=== PATIENT | female | born 1960 | race Asian ===

== ENCOUNTER → 2018-10-25 13:24 | Outpatient (CLI) | payer OTHER, SELFPAY ==
--- NOTE | 2018-10-25 | DI.ECHO.S_ITS ---
[place] [facility]---------+ [facility] +---------+ : : [address] : : : : [id number] : : : : Phone: [phone]+ Echocardiogram Report + + :Name: ANTONIO THOMAS Study Date: 10/25/2018 Height: 62 in : :[facility] Weight: 145 lb : : Gender: Female BSA: 1.7 m2 : :: 1960 Age: 58 yrs BP: 110/70 mmHg: :Reason For Study: LEFT-SIDED PARESTHESIA OF SKIN : : Performed By: Sabiha Plasencia : :Referring: STAR JAMES : + + Interpretation Summary There was early appearance of large amount of bubbles in the left atrium with Valsalva maneuver, indicating an interatrial shunt, related to a PFO or ASD. The left ventricle is normal in size, wall thickness, and systolic function without any focal wall motion abnormalities. The right ventricle is normal in size and function. The right ventricular systolic pressure is estimated to be at least 25 mmHg based on an estimated right atrial pressure of 3 mm Hg. The right atrium is mildly dilated. No hemodynamically significant valvular abnormalities. No prior echo for comparison. Procedure: A two-dimensional transthoracic echocardiogram with color flow and Doppler was performed. The study quality was technically good. There is no prior echocardiogram noted for this patient. A saline contrast injection was performed to assess for cardiac shunting. The patient was in normal sinus rhythm during the exam. Left Ventricle: The left ventricle is normal in size, wall thickness, and systolic function without any focal wall motion abnormalities. There is no ventricular septal defect visualized. The ejection fraction is estimated to be 60-65%. Diastolic parameters suggest probable normal left ventricular diastolic function and normal filling pressures. Right Ventricle: The right ventricle is normal in size and function. Atria: The left atrial size is normal. The right atrium is mildly dilated. Injection of contrast with valsalva documented an interatrial shunt. The interatrial septum is hypermobile. Mitral Valve: There is a flat closure plane of the the mitral valve leaflets. There is trace mitral regurgitation. Aortic Valve: The aortic valve is normal in structure and function. No aortic regurgitation is present. Tricuspid Valve: The tricuspid valve leaflets are thin and pliable. There is mild tricuspid regurgitation. The right ventricular systolic pressure is estimated to be at least 25 mmHg based on an estimated right atrial pressure of 3 mm Hg. Pulmonic Valve: The pulmonic valve is normal in structure and function. There is a trace or physiologic amount of pulmonic regurgitation. Great Vessels: The aortic root is normal size. The ascending aorta is at the upper limits of normal in size. The aortic arch is normal in size. The pulmonary artery is normal size. The IVC is of normal diameter and collapses greater than 50% with a sniff. This suggests a low right atrial pressure of 3 mm Hg. Pericardium/ Pleura There is no pericardial effusion. MMode/2D Measurements & Calculations LVIDd: 4.3 cm LVOT diam: 1.9 cm LVIDs: 2.7 cm Ao root diam: 3.6 cm FS: 38.6 % Aortic Jxn: 2.7 cm EPSS: 0.32 cm asc Aorta Diam: 3.7 cm IVSd: 0.73 cm Ao Arch Diam (Prox Trans): 2.2 cm LVPWd: 0.62 cm LV ann. diameter/BSA (cm/m^2): 2.6 LV sys. diameter/BSA (cm/m^2): 1.6 LA A2 area: 19.1 cm2 RA long axis: 5.2 cm LA A4 area: 17.6 cm2 RA area: 16.2 cm2 LA length (vol): 5.8 cm RA vol: 43.4 ml LA vol: 49.0 ml RA : 26.0 ml/m2 LA vol index: 29.4 ml/m2 IVC diam: 1.2 cm RVD1 (basal): 3.1 cm RVD2 (mid): 2.4 cm TAPSE: 2.1 cm Doppler Measurements & Calculations Ao V2 max: 149.9 cm/sec LVOT Max Yosvany: 100.0 cm/sec Ao V2 mean: 84.6 cm/sec LV V1 max P.0 mmHg Ao max P.0 mmHg LV V1 VTI: 21.5 cm Ao mean P.4 mmHg GALLO(I,D): 2.1 cm2 Ao V2 VTI: 29.5 cm GALLO(V,D): 2.0 cm2 sev ratio: 0.73 GALLO indexed to BSA (cm^2/m^2): 1.3 MV E max yosvany: 81.6 cm/sec TR max yosvany: 235.9 cm/sec MV A max yosvany: 64.0 cm/sec TR max P.3 mmHg MV E/A: 1.3 PA V2 max: 77.9 cm/sec Med Peak E' Yosvany: 8.9 cm/sec PA V2 mean: 50.2 cm/sec E/E' med: 9.1 PA mean P.2 mmHg Lat Peak E' Yosvany: 9.3 cm/sec PA pr(Accel): 41.6 mmHg E/E' lat: 8.8 E/e' average: 9.0 MV dec time: 0.23 sec MV P1/2t: 66.7 msec MV P1/2t max yosvany: 82.0 cm/sec SV(LVOT): 63.1 ml MVA(P1/2t): 3.3 cm2 Electronically signed by: Oren Jasso M.D. on Reading Physician:10/25/2018 04:49 PM
--- NOTE | 2018-10-25 | DI.MRI.S_ITS ---
PROCEDURE: MR HEAD/BRAIN WO CON INDICATIONS: Posterior left sided headaches TECHNIQUE: Non-contrast axial T1 spin echo, axial T2 fast spin echo, sagittal and axial FLAIR, coronal T2 fast spin echo, axial gradient echo, axial diffusion and ADC through the brain. COMPARISON: None. FINDINGS: Image quality: Excellent. CSF spaces: Ventricles appear symmetric in size and shape. Basal cisterns are patent. No extra-axial fluid collections. Brain: No intracranial bleeds or mass effects. There is cerebral volume loss for age. There are periventricular and deep white matter chronic small vessel ischemic changes. Brainstem appears normal. Diffusion-weighted images show no acute ischemic insults. No chronic ischemic insults. Normal intravascular flow voids are present. Skull and face: Calvarial bone marrow is normal in signal. Orbits are normal. Sinuses: Sinuses and mastoids are clear. IMPRESSION: No evidence of acute ischemia. No acute signal abnormalities. Diffuse small white matter signal changes, probably represent chronic microvascular ischemic disease, versus statistically less likely demyelination or other infectious, inflammatory, neurodegenerative etiology, technically nonspecific. Dictated by: Marv Morales M.D. on 10/25/2018 at 15:50 Approved by: Marv Morales M.D. on 10/25/2018 at 15:52
== END ==
PROVIDERS: PCP Registered Nurse Diabetes Educator; Visit Provider Registered Nurse Diabetes Educator
DX: I07.1 Rheumatic tricuspid insufficiency (principal); R51 Headache; R20.2 Paresthesia of skin
CPT/HCPCS: 70551; 93306

== ENCOUNTER → 2019-12-17 17:22 | Outpatient (CLI) | payer OTHER, SELFPAY ==
--- NOTE | 2019-12-17 17:25 | DI.RAD.S_ITS ---
PROCEDURE: XR FOOT LT MIN 3V INDICATIONS: L heel pain x 1 month, no trauma TECHNIQUE: 3 views of the foot were acquired. COMPARISON: None. FINDINGS: Bones: No fractures or dislocations. No suspicious bony lesions. Soft tissues: No tibiotalar joint effusion. Achilles tendon appears normal. IMPRESSION: Minimal plantar fascia insertion spur posterior calcaneus, source of heel pain is not identified otherwise. Dictated by: Barber Camejo M.D. on 12/18/2019 at 8:11 Approved by: Barber Camejo M.D. on 12/18/2019 at 8:11
== END ==
PROVIDERS: PCP Registered Nurse Diabetes Educator; Referring Provider Registered Nurse Diabetes Educator; Visit Provider Registered Nurse Diabetes Educator
DX: M79.672 Pain in left foot (principal)
CPT/HCPCS: 73630

== ENCOUNTER → 2020-02-28 11:06 | Outpatient (CLI) | payer OTHER, SELFPAY ==
--- NOTE | 2020-02-28 | DI.MG.S_ITS ---
BILATERAL DIGITAL SCREENING MAMMOGRAM 3D/2D WITH CAD: 02/28/2020 CLINICAL: Routine screening. Comparison is made to exams dated: 07/17/2015 mammogram, 01/03/2017 mammogram - [facility], and 05/17/2018 mammogram - [facility]. There are scattered fibroglandular elements in both breasts. Current study was also evaluated with a Computer Aided Detection (CAD) system. There is a new oval equal density mass with a spiculated margin in the left breast at 1 o'clock anterior depth. No other significant masses, calcifications, or other findings are seen in either breast. IMPRESSION: INCOMPLETE: NEEDS ADDITIONAL IMAGING EVALUATION The new oval equal density mass in the left breast is indeterminate. Mediolateral and spot compression views as well as additional views with possible ultrasound are recommended. This exam was interpreted at Station ID: [id number]. NOTE: For mammograms, a report in lay terms will be sent to the patient. Approximately 15% of breast malignancies will not be visualized mammographically. In the management of a palpable breast mass, a negative mammogram must not discourage biopsy of a clinically suspicious lesion. Electronically Signed By: Brady wheeler/beny:02/28/2020 12:37:07 letter sent: Additional Imaging Needed ACR BI-RADS Category 0: Incomplete [id number]
== END ==
PROVIDERS: PCP Registered Nurse Diabetes Educator; Referring Provider Registered Nurse Diabetes Educator; Visit Provider Registered Nurse Diabetes Educator
DX: Z12.31 Encounter for screening mammogram for malignant neoplasm of breast (principal)
CPT/HCPCS: 77063; 77067

== ENCOUNTER → 2020-03-25 14:40 | Outpatient (CLI) | payer OTHER, SELFPAY ==
--- NOTE | 2020-03-25 15:34 | DI.MG.S_ITS ---
Date: 03/25/2020 15:22 At the request of: STAR JAMES Procedure: MM special view LT UNILATERAL LEFT DIGITAL DIAGNOSTIC MAMMOGRAM 3D/2D WITH ADDITIONAL VIEWS: 03/25/2020 CLINICAL: Additional evaluation requested from prior study. Comparison is made to exams dated: 02/28/2020 mammogram - [facility], 05/17/2018 mammogram - [facility], and 01/03/2017 mammogram - [facility]. There are scattered fibroglandular elements in left breast. There is a stable 5 mm low density focal asymmetry in the left breast at 2 o'clock middle depth. There also is an 8 mm irregular equal density mass with a spiculated margin in the left breast at 2 o'clock middle depth. This is increased in size. Additionally, there is a stable benign 2 cm focal asymmetry with coarse calcifications in the left breast at 12 o'clock middle depth. No other significant masses or calcifications are seen in the breast. IMPRESSION: INCOMPLETE: NEEDS ADDITIONAL IMAGING EVALUATION The stable 5 mm low density focal asymmetry in the left breast at 2 o'clock middle depth is indeterminate. The 8 mm irregular equal density mass in the left breast at 2 o'clock middle depth is indeterminate. An ultrasound is recommended. This exam was interpreted at Station ID: [id number]. NOTE: For mammograms, a report in lay terms will be sent to the patient. Approximately 15% of breast malignancies will not be visualized mammographically. In the management of a palpable breast mass, a negative mammogram must not discourage biopsy of a clinically suspicious lesion. SUMMARY: Targeted ultrasound is recommended for further evaluation and will be scheduled immediately following this exam. Electronically Signed By: Rolly holt/beny:03/26/2020 11:22:37 ACR BI-RADS Category 0: Incomplete [id number]
--- NOTE | 2020-03-25 15:47 | DI.US.S_ITS ---
Date: 03/25/2020 15:42 At the request of: STAR ERIKA Procedure: US breast LT limited LIMITED ULTRASOUND OF LEFT BREAST AND AXILLA: 03/25/2020 CLINICAL: Patient returns today to evaluate a density in the left breast. Comparison is made to exams dated: 03/25/2020 mammogram, 02/28/2020 mammogram - [facility], 05/17/2018 mammogram - [facility], and 01/03/2017 mammogram - [facility]. Color flow ultrasound of the left breast 3 o'clock, and axilla regions was performed. Jade scale images of the real-time examination were reviewed. There is a 0.9 cm x 0.9 cm x 0.5 cm irregular mass with an angular margin in the left breast at 2 o'clock anterior depth 2 cm from the nipple. This irregular mass is hypoechoic with an echogenic boundary. This correlates with mammography findings. Color flow imaging demonstrates that there is no vascularity present. This lesion is labeled as #3 on ultrasound images and likely corresponds to the spiculated mass seen on mammography. There also is a 0.9 cm x 0.8 cm x 0.5 cm irregular cyst in the left breast at 1 o'clock anterior depth 2 cm from the nipple. This irregular cyst is anechoic and hypoechoic. Color flow imaging demonstrates that there is an adjacent vascularity. This is labeled as lesion #2 on ultrasound images. This lesion likely corresponds to the low-density lesion on mammography. Additionally, there is a stable benign 1 cm x 1.7 cm x 0.7 cm oval mass with a circumscribed margin in the left breast at 12 o'clock middle depth 3 cm from the nipple. This oval mass is hypoechoic. This correlates with mammography findings. There are calcifications within the mass. No significant abnormalities were seen sonographically in the left axilla. IMPRESSION: SUSPICIOUS OF MALIGNANCY The 0.9 cm x 0.9 cm x 0.5 cm irregular mass in the left breast at 2 o'clock anterior depth is at a high suspicion for malignancy. An ultrasound guided biopsy is recommended. The findings and recommendations were discussed with the patient by the onsite radiologist, Dr. Tejada, at the time of the exam. The 0.9 cm x 0.8 cm x 0.5 cm irregular cyst in the left breast at 1 o'clock anterior depth most likely is a complicated cyst and is probably benign. Follow-up mammogram and ultrasound in 6 months is recommended. The stable 1 cm x 1.7 cm x 0.7 cm oval mass in the left breast at 12 o'clock middle depth is benign. This exam was interpreted at Station ID: [id number]. Electronically Signed By: Rolly Santana M.D. ar/:03/26/2020 11:39:01 letter sent: Biopsy Required Ultrasound BI-RADS: 4c High suspicion of malignancy
== END ==
PROVIDERS: PCP Registered Nurse Diabetes Educator; Referring Provider Registered Nurse Diabetes Educator; Visit Provider Registered Nurse Diabetes Educator
DX: R92.8 Other abnormal and inconclusive findings on diagnostic imaging of breast (principal); N63.21 Unspecified lump in the left breast, upper outer quadrant; N63.25 Unspecified lump in the left breast, overlapping quadrants; N60.02 Solitary cyst of left breast
CPT/HCPCS: 76642; 77065; G0279

== ENCOUNTER → 2020-03-30 14:26 | Outpatient (CLI) | payer OTHER, SELFPAY ==
--- NOTE | 2020-03-30 14:29 | DI.CT.S_ITS ---
PROCEDURE: CT ANGIO HEAD INDICATIONS: reeval 2 mm outpouching along L GERALDINE on 10/01/2018 [facility]A [facility] TECHNIQUE: Precontrast 4.5 mm thick angled axial sections acquired from the foramen magnum to the vertex. After the administration of intravenous contrast, 1 mm thick sections acquired through the Schroeder of [place]. Postcontrast 4.5 mm thick sections then re-acquired from the foramen magnum to the vertex. 10 mm thick ilazoid-nywifzsij-vncilsqzsn (MIP) reformats were acquired of the central intracranial vasculature. For radiation dose reduction, the following was used: automated exposure control, adjustment of mA and/or kV according to patient size. COMPARISON: [facility], RG, CT ANGIO HEAD, 10/01/2018, 12:10. FINDINGS: Image quality: Excellent. Anterior circulation: Intracranial internal carotid arteries are normal in size and flow. As before, there is a 2 mm saccular aneurysm protruding laterally from the proximal aspect of the left anterior cerebral artery. The flow within the paired anterior cerebral arteries is otherwise normal and symmetric. The flow within the middle cerebral arteries is normal and symmetric. The anterior communicating artery is seen. Posterior circulation: Visualized portions of the vertebral arteries demonstrate normal caliber, and join to form a normal appearing basilar artery. Flow within the posterior cerebral arteries is normal and symmetric. No aneurysms are seen. CSF spaces: Ventricles are normal in size and shape. Basal cisterns are patent. No extra-axial fluid collections. Brain: No midline shift. No intracranial bleeds or masses. Jade-white matter interface appears intact. Skull and face: Calvarium and facial bones appear intact, without suspicious lesions. Sinuses: Visualized sinuses and mastoids are clear. IMPRESSION: 1. 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 2. Otherwise negative CT angiography of the head. Dictated by: Coni Zamora M.D. on 03/31/2020 at 8:29 Approved by: Coni Zamora M.D. on 03/31/2020 at 8:32
== END ==
PROVIDERS: PCP Registered Nurse Diabetes Educator; Referring Provider Registered Nurse Diabetes Educator; Visit Provider Registered Nurse Diabetes Educator
DX: I67.1 Cerebral aneurysm, nonruptured (principal)
CPT/HCPCS: 70496; Q9967

== ENCOUNTER → 2020-04-03 09:23 | Outpatient (CLI) | payer OTHER, SELFPAY ==
--- NOTE | 2020-04-03 | PATH_ITS ---
[facility] Accession Number: [id number] . 01 Material submitted: . breast - LEFT BREAST, 2 O'CLOCK 2CM FROM THE NIPPLE . 01 Diagnosis: A. Left Breast Mass, 2 O'clock, 2 cm From The Nipple, Biopsy: Fibroadenoma, with associated sclerosing adenosis, usual ductal hyperplasia, focal columnar cell change/hyperplasia, and focal apocrine metaplasia. Negative for atypia, carcinoma in situ, and malignancy. MRV 04/08/2020 0504 Local . 01 Comment: Clinical and radiographic correlation is necessary. Deeper levels examined. . 01 Electronically signed: . Trisha Cook MD, Pathologist NPI- [id number] . 01 Gross description: . Received in formalin, labeled LT BRST, are multiple fragments of bates adipose tissue and clotted hemorrhagic material ranging in size from 1.2 x 0.3 x 0.3 cm to 0.3 x 0.2 x 0.2 cm. All tissue and material are entirely submitted in cassette A1. Collection date and time are listed as 04/03/20 at 10:43 a.m. for a total fixation time after processing of approximately 53 hours. ([id number]) /FRR 04/04/2020 1647 Local . 01 Pathologist provided ICD-10: D24.2 . 01 CPT . 827377 Performed at: 01 [facility] [address] [place] [address], [place], [place] [id number] MD Brady Bear MD Phone: [phone]
--- NOTE | 2020-04-03 | DI.MG.S_ITS ---
UNILATERAL LEFT DIGITAL DIAGNOSTIC MAMMOGRAM POST-PROCEDURE IMAGING FOR MARKER PLACEMENT: 04/03/2020 CLINICAL: Left post clip. Comparison is made to exams dated: 03/25/2020 ultrasound, 03/25/2020 mammogram, and 02/28/2020 mammogram - [facility]. There are scattered fibroglandular elements in left breast. There is a marker clip in the appropriate position in the left breast at 2 o'clock middle depth. This marker clip placement is at the biopsy site. IMPRESSION: POST PROCEDURE MAMMOGRAM FOR MARKER PLACEMENT There was a successful marker clip placement in the left breast middle depth. Future imaging is recommended as follows: 09/22/2020 left mammogram and an ultrasound. This exam was interpreted at Station ID: [id number]. NOTE: For mammograms, a report in lay terms will be sent to the patient. Approximately 15% of breast malignancies will not be visualized mammographically. In the management of a palpable breast mass, a negative mammogram must not discourage biopsy of a clinically suspicious lesion. Electronically Signed By: Lidia means/beny:04/03/2020 10:58:19 ACR BI-RADS Category Post-procedure mammogram for marker placement
--- NOTE | 2020-04-03 09:24 | DI.US.S_ITS ---
PROCEDURE: US BX BREAST PERC W VAC DEVICE COMPARISON: None. INDICATIONS: LEFT BREAST MASS FINDINGS: IMPRESSION: Dictated by: Lidia Tejada MD, PhD on 04/03/2020 at 11:02 Approved by: Lidia Tejada MD, PhD on 04/03/2020 at 11:02
--- NOTE | 2020-04-03 09:51 | DI.US.S_ITS ---
Date: 04/03/2020 10:44 At the request of: STAR JAMES Procedure: US bx breast perc w vac device ULTRASOUND GUIDED BIOPSY LEFT BREAST USING VACUUM DEVICE WITH MARKING DEVICE INSERTED AND POST ULTRASOUND IMAGIN04/03/2020 CLINICAL: Left breast mass. PATIENT CONSENT: Risks (minor bleeding, infection, vasovagal reaction and repeat procedure), benefits and alternatives were explained to the patient and written informed consent was obtained. Correlation is made to exams dated: 03/25/2020 ultrasound, 03/25/2020 mammogram, 02/28/2020 mammogram - [facility], 05/17/2018 mammogram - [facility], 01/03/2017 mammogram, and 07/17/2015 mammogram - [facility]. An ultrasound guided biopsy using real-time ultrasound was performed for the 0.9 cm oval mass located in the left breast at 2 o'clock middle depth 2 cm from the nipple. This was described on the previous ultrasound report. The skin was prepped in the usual manner. Local anesthetic was administered to the access site. A skin placido was made in the breast. A 13 gauge biopsy needle was placed adjacent to the abnormality under ultrasound guidance. Once the needle was documented to be in the correct location, three specimens were obtained using the Mammotome biopsy system. A Vision clip was inserted into the biopsy cavity. Post procedure ultrasound imaging demonstrates the location device at the targeted area. The specimens were sent to the laboratory for pathological analysis. IMPRESSION: ULTRASOUND GUIDED BIOPSY BENIGN Ultrasound guided biopsy of the 0.9 cm mass in the left breast at 2 o'clock middle depth 2 cm from the nipple was successful. Pathology indicates benign fibroadenoma (FA). Pathology results are concordant with imaging findings. A follow-up mammogram and an ultrasound in 6 months is recommended to demonstrate stability of this mass and the adjacent likely complicated cyst at 1:00 2 cm from the nipple as described in the prior report. This exam was interpreted at Station ID: [id number]. Lidia Mast M.D. [facility]/:04/09/2020 08:08:54
== END ==
PROVIDERS: PCP Registered Nurse Diabetes Educator; Referring Provider Registered Nurse Diabetes Educator; Visit Provider Registered Nurse Diabetes Educator
DX: D24.2 Benign neoplasm of left breast (principal); N60.22 Fibroadenosis of left breast; N60.82 Other benign mammary dysplasias of left breast
CPT/HCPCS: 19083; 77065

== ENCOUNTER → 2020-05-26 09:58 | Outpatient (CLI) | payer OTHER, SELFPAY ==
[2020-05-26 12:11] LABS: COVID19 -Nasal RAPID Negative (Negative)
== END ==
PROVIDERS: PCP Registered Nurse Diabetes Educator; Visit Provider Specialist
DX: Z20.822 Contact with and (suspected) exposure to COVID-19 (principal)
CPT/HCPCS: 87635; C9803

== ENCOUNTER 2020-05-27 06:44 | Day surgery (SDC) | payer OTHER, SELFPAY ==
[2020-05-27] VITALS (10 sets, daily range): BP systolic 113–151; BP diastolic 68–86; PULSE 61–78; RESP 11–16; TEMP 36.3–36.8; O2SAT 97–100; BMI 26.5
--- NOTE | 2020-05-27 | DI.MG.S_ITS ---
SPECIMEN: 05/27/2020 CLINICAL: Left breast specimen. Correlation is made to exams dated: 04/03/2020 mammogram, 03/25/2020 mammogram, and 02/28/2020 mammogram - [facility]. Specimen radiograph shows the mass, localization Vision marker, and distal localization wire centrally positioned. IMPRESSION: SPECIMEN Expected specimen appearance from the OR. Future imaging is recommended as follows: 09/22/2020 left mammogram and an ultrasound. This exam was interpreted at Station ID: [id number]. Barber Camejo M.D. sdh/:05/27/2020 12:02:45
--- NOTE | 2020-05-27 | DI.MG.S_ITS ---
UNILATERAL LEFT DIGITAL DIAGNOSTIC MAMMOGRAM POST-NEEDLE BIOPSY: 05/27/2020 CLINICAL: Left breast mass. Comparison is made to exams dated: 04/03/2020 mammogram, 03/25/2020 mammogram, and 02/28/2020 mammogram - [facility]. There are scattered fibroglandular elements in left breast. The wire localization results in the loc wire tip at the margin of the biopsy marker. IMPRESSION: POST PROCEDURE MAMMOGRAM FOR MARKER PLACEMENT Expected locqalization wire position adjacent to the prior biopsy marker, for surgical excision. Future imaging is recommended as follows: 09/22/2020 left mammogram and an ultrasound. This exam was interpreted at Station ID: [id number]. NOTE: For mammograms, a report in lay terms will be sent to the patient. Approximately 15% of breast malignancies will not be visualized mammographically. In the management of a palpable breast mass, a negative mammogram must not discourage biopsy of a clinically suspicious lesion. Electronically Signed By: Barber Camejo M.D. sdh/:05/27/2020 12:05:26 ACR BI-RADS Category Post-procedure mammogram for marker placement
--- NOTE | 2020-05-27 | PATH_ITS ---
[facility] Accession Number: [id number] . 01 Material submitted: . breast - LEFT BREAST MASS . 01 Clinical history: . NEEDLE LOCALIZATION / BX . 02 Diagnosis: Left Breast, Mass, Wire Localized Lumpectomy: Invasive ductal carcinoma. Please see cancer summary below. Benign fibroadenoma, 6 mm. Biopsy site changes. Please see comment. . SURGICAL PATHOLOGY CANCER CASE SUMMARY . Procedure: Excision. Specimen laterality: Left. Tumor site: 2 o'clock. Tumor size: Greatest dimension of largest invasive focus: 8 mm, as measured on slide. Histologic type: Invasive carcinoma of no special type (ductal). Histologic grade ([place] histologic score): Glandular differentiation: Score 2. Nuclear pleomorphism: Score 2. Mitotic rate: Score 2. Overall grade: Grade 2. Tumor focality: Single focus of invasive carcinoma. Ductal carcinoma in situ: Present. Negative for extensive intraductal component. Size/extent of DCIS: Estimated size of DCIS is at least 24 mm. Number of blocks with DCIS: 8. Number of blocks examined: 21. Architectural patterns: Cribriform and micropapillary. Nuclear grade: Grade 2 (intermediate). Necrosis: Not identified. Lobular carcinoma in situ: Present (Block A4). . Margins: -Uninvolved by invasive carcinoma. -Distance from closest margin: 2 mm. -DCIS focally abuts one unoriented margin (less than 0.5 mm). Regional lymph nodes: No lymph nodes submitted or found. Treatment effect in the breast: No known presurgical therapy. Lymphovascular invasion: Not identified. Dermal lymphovascular invasion: No skin present. . Pathologic stage classification (AJCC 8th Edition): Primary tumor: pT1b. Regional lymph nodes: pNX. . Additional pathologic findings: Biopsy site changes. Benign fibroadenoma. Adenosis and usual ductal hyperplasia. . Ancillary studies: Estrogen receptor: Positive, greater than 95%. Progesterone receptor: Positive, greater than 95%. HER2 by IHC: Negative (Score 1+). . Microcalcifications: Not identified. [facility] 06/03/2020 1747 Local . 02 Comment: The size of the invasive carcinoma is based on the on-slide measurement of the largest tumor dimension. . As part of routine vice president quality assurance, Dr. Rivas also reviewed selected slides and agrees with the diagnosis of invasive ductal carcinoma. Dr. Domingo discussed preliminary results with Dr. Gordon on 06/03/2020 at 12:39 PM. . 02 Electronically signed: . Татьяна Domingo MD, Pathologist NPI- [id number] . 01 Gross description: . The specimen is received in formalin, labeled left breast mass. Specimen: Left lumpectomy specimen. Weight: 19 grams. Measurement: 6.0 x 4.6 x 2.8 cm (no orientation present). Skin ellipse: Absent. Wire: Present. Margins: The specimen is inked blue (no orientation). Sliced: Into 15 slices. Lesion: Firm bates-white biopsy site within slices 6 and 7 measuring 0.6 x 0.5 x 0.4 cm. Clip: Present, balloon shaped, silver metallic in slice 7. Margins: 0.1 cm from the nearest margin. Other: The remaining cut surfaces are composed of approximately 80% bates-yellow lobulated adipose tissue and 20% bates-white fibrous tissue. The specimen is entirely submitted. A1: slice 1, perpendicularly sectioned. A2-A3: slices 2 and 3. A4-A7: slices 4 and 5, bisected. A8-A9: slice 6, biopsy site, bisected. A10: slice 7, biopsy site and site of biopsy clip. A11: slice 8. A12-A13: slice 9, bisected. A14-A15: slice 10, bisected. A16-A17: slice 11, bisected. A18: slice 12, bisected. A19: slice 13. A20: slice 14. A21: slice 15, perpendicularly sectioned. Formalin fixation time: Approximately 28 hours. (EA:cmc10 [id number]) /MRV 05/28/2020 1131 Local . 02 Microscopic: . CAP BREAST BIOMARKER REPORTING TEMPLATE: . Testing performed on Block Number: A4 E-cadherin: Negative in the cells of interest. . Testing performed on Block Number: A9 Estrogen Receptor (SP1): Strongly positive, greater than 95% of cells. Progesterone Receptor (1E2): Strongly positive, greater than 95% of cells. HER2 by immunohistochemistry (4B5): Negative (Score 1+) . . TECHNICAL NOTE: Cold Ischemia and Fixation Times: Meets requirements in the latest version of the ASCO/CAP guidelines. The scoring criteria for breast biomarkers by immunohistochemistry is based on the current ASCO/CAP guidelines (Davis et al, Arch Pathol Lab Med 2010: 134(6): 907-922 / Hemant Charles al, Arch Pathol Lab Med 2014: 138(2): 241-256). Deparaffinized sections of formalin fixed tissue (along with appropriate positive controls) are incubated with the above antibody(s). Using the automated [place] stainer, tissue is incubated with the designated antibody* which is then localized by a non-biotin, dual polymer detection system. The external controls are reviewed for appropriate reactivity and found to be adequate. Results on the target cell population are indicated above. These tests have not been validated on decalcified tissue. * This test was developed and its performance characteristics determined by [employer] [facility]. It has not been cleared or approved by the U.S. Food and Drug Administration. The FDA has determined that such clearance or approval is not necessary. This test is used for clinical purposes. It should not be regarded as investigational or for research. . 02 Pathologist provided ICD-10: C50.912 . 02 CPT . 843572, X01725, 376138, 414197, 569346 Performed at: 01 [facility] [address] [id number] MD Brady Bear MD Phone: [phone] Performed at: 02 [facility] [address] [place], [place] [id number] MD Татьяна Domingo MD Phone: [phone]
--- NOTE | 2020-05-27 06:52 | DI.US.S_ITS ---
ULTRASOUND GUIDED WIRE LOCALIZATION LEFT BREAST WITH POST MAMMOGRAPHIC IMAGING AND RADIOGRAPHIC SPECIMEN IMAGIN05/27/2020 CLINICAL: Left breast mass wire localization. Correlation is made to exams dated: 05/27/2020 mammogram, 05/27/2020 specimen, 04/03/2020 ultrasound biopsy, 04/03/2020 mammogram, 03/25/2020 ultrasound, and 03/25/2020 mammogram - [facility]. A wire localization using ultrasound guidance was performed for the concerning circumscribed round marker clip located in the left breast at 2 o'clock anterior depth. This was described on the previous mammography and ultrasound reports. The skin was prepped in the usual manner. Local anesthetic was administered to the access site. The localization was approached from the lateral aspect. A J-hook wire was inserted into the targeted area under ultrasound guidance. A sterile dressing was applied to the access site. Post placement mammographic imaging demonstrates the tip demarcates the boundaries of the targeted area. IMPRESSION: WIRE LOCALIZATION Wire localization for the marker clip in the left breast at 2 o'clock anterior depth was successful. The imaged specimen includes the lesion, a biopsy clip, and the distal portion of the localization wire. A specimen radiograph was reviewed. Future imaging is recommended as follows: 09/22/2020 left mammogram and an ultrasound. This exam was interpreted at Station ID: [id number]. Barber Camjeo M.D. [facility]/:05/27/2020 12:00:36
[2020-05-27] MEDS: LACTATED RINGERS 1,000 ML 100 ML IV (08:21)
--- NOTE | 2020-05-27 09:18 | PM.PREOP ---
Pre-operative Note COVID-19 COVID-19 status: Negative Result date/Date tested (Pos, Neg/Pending): 05/26/20 Interval Note History & Physical reviewed/Exam performed by Physician: Yes Changes to H&P: Yes H&P completed within 30 days and has changed as indicated here:: Successful needle localization of the marker clip from the prior biopsy
[2020-05-27] MEDS: CEFAZOLIN 2 GM/100 ML FROZ.PIGGY IV (09:36)
--- NOTE | 2020-05-27 10:03 | SUR.OPER ---
Supine on padded OR bed, head on pillow, arms secured on padded arm boards at <90 degrees abduction, legs uncrossed, safety belt at thigh, tape over blanket over lower legs.
[2020-05-27] MEDS: BUPIVACAINE 0.5% (PF) VIAL 30 ML INJ (10:08)
--- NOTE | 2020-05-27 10:46 | PM.OP.1 ---
Operative Date/Time/Diagnoses Date of procedure: 05/27/20 Time of procedure: 10:46 Pre-op diagnosis: Newly acquired mass in a patient with a mother who had breast cancer. Though the biopsies were benign patient was very concerned and desired that the whole lesion be removed. Post-op diagnosis: same Procedure & Clinicians Procedure: Needle localization lumpectomy Same procedure as scheduled: Yes Indications: New mass in the breast. Patient desired removal due to her family history. Surgeon: Kai Gordon Click Yes if Unassisted: Yes Anesthesia Type: General Operative Notes Findings: Abnormality as well as the clip and needle were within the specimen. Closure Type: primary Specimen(s): other (Breast tissue) Prosthetic devices, grafts, tissues, transplants, or devices: None Estimated Blood Loss (mL): 15 Blood products transfused: none Procedure in detail: The patient is placed supine on the operating room table after a needle had been placed in her breast marking the prior biopsy site. She was prepped and draped in the usual fashion. The needle had been shortened to allow for prepping without contamination. Curvilinear incision was made at the edge of the areola do the location of the mass. Local anesthetic was infiltrated prior to the incision. Incision was carried down into the breast proper. Using the needle and palpation as a guide and sharp dissection and cautery the tissue around the needle was removed. It was sent for her mammographies E and contained the abnormality as well as the clip and needle. Meticulous hemostasis was achieved. Local anesthetic was infiltrated in the wall of the biopsy cavity. space was closed with interrupted 3-0 Vicryl. The subQ was closed with interrupted 3-0 Vicryl and skin was closed running 4-0 Vicryl subcuticular stitch and Steri-Strips. Dressing was applied the patient was awakened taken recovery room good condition. Complications: none Post-operative Condition: stable Disposition: PACU
--- NOTE | 2020-05-27 10:57 | SUR.PHASEI ---
1050 Returned to sleep after two ice chips - said 'thank you'. VSS from the OR. Skin warm and dry, resp unlabored.
--- NOTE | 2020-05-27 11:02 | SUR.PHASEI ---
Hand off to LEROY Andino
[2020-05-27] MEDS: OXYCODONE/ACETAMINOPHEN 5/325 TABLET 1 TAB PO (11:31)
== END 2020-05-27 11:51 | disposition home or self-care (01) ==
PROVIDERS: PCP Registered Nurse Diabetes Educator; Referring Provider Registered Nurse Diabetes Educator; Visit Provider Specialist
PROC: (CPT 19125; principal; 2020-05-27 09:30)
DX: C50.412 Malignant neoplasm of upper-outer quadrant of left female breast (principal); E78.5 Hyperlipidemia, unspecified; Z17.0 Estrogen receptor positive status [ER+]; Z80.3 Family history of malignant neoplasm of breast
CPT/HCPCS: 19125; 19285; 76098; 77065; C1819; J0690; J1100; J1885; J2250; J2405; J2704; J3010

== ENCOUNTER → 2020-06-23 13:10 | Outpatient (CLI) | payer OTHER, SELFPAY ==
[2020-06-23 13:48] LABS: COVID19 -Nasal RAPID Negative (Negative)
== END ==
PROVIDERS: PCP Registered Nurse Diabetes Educator; Visit Provider Specialist
DX: Z20.822 Contact with and (suspected) exposure to COVID-19 (principal)
CPT/HCPCS: 87635; C9803

== ENCOUNTER 2020-06-24 06:42 | Day surgery (SDC) | payer OTHER, SELFPAY ==
[2020-06-23 13:07] VITALS: BMI 27.4
[2020-06-24] VITALS (10 sets, daily range): BP systolic 120–149; BP diastolic 79–92; PULSE 67–76; RESP 10–16; TEMP 36.4–37.2; O2SAT 93–100; BMI 27.4
--- NOTE | 2020-06-24 | PATH_ITS ---
[facility] Accession Number: [id number] . 01 Material submitted: . PART A: breast - LEFT AXILLARY SENTINEL NODE PART B: breast - LEFT SIDE PRIOR LUMPECTOMY SITE . 01 Clinical history: . B: LEFT SIDE PRIOR LUMPECTOMY SITE, SHORT STITCH IS SUPERIOR, LONG STITCH IS INFERIOR, INTERMEDIATE STITCH IS MEDIAL . 02 Diagnosis: A. Left Axillary [place] Node, Excision: One sentinel lymph node negative for metastatic carcinoma, pN0(sn). . B. Left Side of Prior Lumpectomy Site, Reexcision: 1. Negative for residual carcinoma or ductal carcinoma in situ. 2. Benign fibroadenoma. 3. Small benign intraductal papilloma. 4. Rare atypical ductal hyperplasia. 5. Lobular carcinoma in situ. 6. Changes consistent with prior procedure. [facility] 06/30/2020 1445 Local . 02 Electronically signed: . Татьяна Domingo MD, Pathologist NPI- [id number] . 01 Gross description: . A. Received in formalin, labeled left axillary sentinel node and consists of a 2.5 x 1.5 x 0.7 cm lymph node with attached adipose tissue. The lymph node is bisected and entirely submitted in cassettes A1-A2. Formalin fixation time: Approximately 26 hours. . B. Received in formalin, labeled left lumpectomy. Weight: 25 grams. Measurement: 7.2 cm from medial to lateral by 5.5 cm from anterior to posterior by 2.1 cm from superior to inferior. Skin Ellipse: Present, measuring 2.6 x 0.3 cm with a 2.5 cm in length well-healed scar. Wire: Absent. Margins: The specimen is oriented with a short suture designated superior, a long suture designated inferior, and an intermediate suture designated medial, and is inked as follows: superior blue, inferior green, anterior red, posterior black, medial yellow and lateral orange. Sliced: From lateral to medial into 13 slices. Lesion: There is a 1.8 x 1.8 x 0.5 cm previous biopsy cavity which is surrounded by fat necrosis within slices 2-9. No biopsy marker is identified. Margins: 0.5 cm from the anterior margin, 0.1 cm to the inferior margin, 0.3 cm from the superior margin, 0.7 cm from the lateral margin, 0.8 cm from the posterior margin, and greater than 1 cm from the medial margin. Other: The remaining cut surfaces are composed of approximately 80% bates-yellow adipose tissue and 20% bates-white fibrous tissue. The specimen is entirely submitted. B1-B2: slice 1, lateral margin, perpendicularly sectioned. B3: slice 2. B4-B15: slices 2-8, bisected. B16-B17: slice 9. B18-B20: slice 10. B21-B22: slice 11. B23-B24: slice 12. B25-B26: slice 13, medial margin, perpendicularly sectioned. Formalin fixation time: Approximately 26 hours. (EA:cmc10 [id number]) /MRV 06/25/2020 1516 Local . 02 Microscopic: . A. Immunohistochemical stains were performed to characterize cells of interest. All control stains showed appropriate reactivity. . RESULTS: Block A1 and A2: JARON: Negative. . RESULT: Blocks B9 and B11: E-cadherin is negative in the cells of interest. P63: Positive around the ducts of interest. . INTRPRETATION: A1-A2: No evidence of metastatic carcinoma by immunohistochemistry. B9-B11: The immunophenotype is compatible with lobular carcinoma in situ. . * This test was developed and its performance characteristics determined by [employer]. It has not been cleared or approved by the U.S. Food and Drug Administration. The FDA has determined that such clearance or approval is not necessary. This test is used for clinical purposes. It should not be regarded as investigational or for research. . 02 Pathologist provided ICD-10: Z85.3 . 02 CPT . 763221, 889882, C36405, B05530 Performed at: 01 [facility] [address] [id number] MD Brady Bear MD Phone: [phone] Performed at: 02 [facility] [address] [place] [id number] MD Татьяна Dmoingo MD Phone: [phone]
--- NOTE | 2020-06-24 06:44 | DI.NM.S_ITS ---
PROCEDURE: NM SENTINEL NODE W IMAGING RADIOPHARMACEUTICAL: 0.5-1.0 mCi Millipore filtered Tc-99m sulfur colloid. INDICATIONS: breast CA left. Post biopsy. [place] node biopsy COMPARISON: [facility], , MM DIAGNOSTIC MAMMO UNILAT LT2D, 05/27/2020, 8:57. [facility], US, US BREAST NEEDLE LOC LT, 05/27/2020, 8:32. TECHNIQUE: The area around the nipple was prepped and draped in a sterile fashion. Tc-99m sulfur colloid was injected intra-dermally in the outer edge of the areola in the left breast. Images were obtained subsequently. A body contour outline was obtained. FINDINGS: There is focal activity lateral to the left breast, compatible with a sentinel lymph node lymph node in the ipsilateral axilla. A couple of foci of uptake medial to the left breast, probably small internal mammary lymph nodes. IMPRESSION: A sentinel lymph node is identified in the left axilla. Dictated by: Aria Osullivan M.D. on 06/24/2020 at 10:23 Approved by: Aria Osullivan M.D. on 06/24/2020 at 10:28
[2020-06-24] MEDS: LACTATED RINGERS 1,000 ML 100 ML IV ×2 (09:15→13:34)
--- NOTE | 2020-06-24 11:28 | P.OP.PRE_ITS ---
Pre-operative Note COVID-19 COVID-19 status: Negative Result date/Date tested (Pos, Neg/Pending): 06/23/20 Interval Note History & Physical reviewed/Exam performed by Physician: Yes Changes to H&P: Yes H&P completed within 30 days and has changed as indicated here:: [place] node mapping has been performed and the study reviewed.
--- NOTE | 2020-06-24 11:39 | SUR.PREOP ---
Patient was put on continuous pulse ox when anesthesia provided sedation. In talking to her, she stated that she was beginning to feel better. Updated on status. Current pulse ox 97%, HR 75
[2020-06-24] MEDS: CEFAZOLIN 1 GM VIAL 2 GM IV (11:58)
--- NOTE | 2020-06-24 12:08 | SUR.OPER ---
Supine on padded OR bed, head on pillow, bilateral arms placed on padded arm boards at <90 abduction, legs uncrossed, pillow under knees, safety belt at thigh, tape over blanket over lower legs. Gel pad under bilateral heels.
[2020-06-24] MEDS: BUPIVACAINE 0.5% (PF) VIAL 30 ML INJ (12:43)
[2020-06-24] MEDS: OXYCODONE/ACETAMINOPHEN 5/325 TABLET 1 TAB PO (14:01)
[2020-06-24] MEDS: fentaNYL 100 MCG/2 ML INJ IV (14:07)
--- NOTE | 2020-06-24 14:23 | P.OP_ITS ---
Operative Date/Time/Diagnoses Date of procedure: 06/24/20 Time of procedure: 14:00 Pre-op diagnosis: Left-sided breast cancer Post-op diagnosis: same Procedure & Clinicians Procedure: Re-excision of lumpectomy site. [place] node biopsy. Same procedure as scheduled: Yes Indications: Patient is a woman who desired removal of what was a biopsy-proven benign lesion. However adjacent to it apparently was a malignancy that was unexpected. She had a complete excision of the invasive component but 1 margin was positive at a mm location. She is brought back for excision of the biopsy site and a sentinel node biopsy. Surgeon: Kai Gordon Click Yes if Unassisted: Yes Anesthesia Type: General Operative Notes Findings: Entire wall of prior biopsy cavity excised intact. One sentinel node identified. Closure Type: primary Specimen(s): other (Node plus breast tissue) Prosthetic devices, grafts, tissues, transplants, or devices: None Estimated Blood Loss (mL): 20 Procedure in detail: Patient was placed supine on the operating room table and underwent general LMA anesthesia. She was prepped and draped in the usual fashion. Using a normal natural fold in the axilla and in local anesthetic was infiltrated and sedation made and carried down into the axilla proper. Using a navigator probe I was able to identify a single node at that was mildly enlarged and it was excised. The 12nd count was almost 1500. There were no other nodes in the area even close to 10% of that figure divided by 10. The entire area basically had single digit counts once that node was removed. The vasculature going to and from the node were ligated with 3-0 Vicryl ties. The axillary fascia was closed with interrupted 3-0 Vicryl. The subcu was closed with interrupted 3-0 Vicryl and the skin was closed running 4-0 Vicryl subcuticular stitch. This wound was isolated with a Tegaderm and attention was turned to the prior biopsy site. After instilling local anesthetic the prior scar was excised. Using cautery and sharp dissection I dissected out that a palpable wall of the prior biopsy site. It appeared to be a excised in its entirety and intact. The cavity was irrigated suctioned free of fluid and meticulous hemostasis achieved. It was irrigated once again. Clips were used to dana the wall of the cavity. The space closed with 3-0 Vicryl. The subcu was closed with 3-0 Vicryl and skin was closed a running 4-0 Vicryl subcuticular stitch and Steri-Strips. Sutures were used to dana the specimen. The ellipse of skin was left intact on the specimen. Local anesthetic was infiltrated once again in this and the other wound site. Steri-Strips were applied to the axillary area as well. Gauze ABD and six-inch Alex were used to secure the wound sites. Patient tolerated the procedure well. Complications: none Post-operative Condition: stable Disposition: PACU
[2020-06-24] MEDS: OXYCODONE IR 5 MG TABLET PO (14:34)
[2020-06-24] MEDS: ACETAMINOPHEN 325 MG TABLET 650 MG PO (14:55)
== END 2020-06-24 15:15 | disposition home or self-care (01) ==
PROVIDERS: PCP Registered Nurse Diabetes Educator; Referring Provider Registered Nurse Diabetes Educator; Visit Provider Specialist
PROC: (CPT 19301; principal; 2020-06-24 10:45)
DX: C50.912 Malignant neoplasm of unspecified site of left female breast (principal)
CPT/HCPCS: 38525; 19301; 78195; 82962; A9541; J0690; J1100; J2250; J2405; J2704; J3010

== ENCOUNTER → 2020-11-16 11:23 | Outpatient (CLI) | payer OTHER, SELFPAY ==
--- NOTE | 2020-11-16 11:24 | DI.RAD.S_ITS ---
PROCEDURE: XR DEXA AXIAL SKELETON INDICATIONS: post-menopausal bone loss COMPARISON: None. FINDINGS: This blank DEXA report has been sent in error by the PACS system. The correct and complete report will be forthcoming in 1-2 days. Thank you for your patience and understanding. Dictated by: iLdia Tejada MD, PhD on 11/16/2020 at 15:04 Approved by: Lidia Tejada MD, PhD on 11/16/2020 at 15:04
== END ==
PROVIDERS: PCP Registered Nurse Diabetes Educator; Referring Provider Internal Medicine Hematology & Oncology; Visit Provider Internal Medicine Hematology & Oncology
DX: C50.412 Malignant neoplasm of upper-outer quadrant of left female breast (principal); M85.832 Other specified disorders of bone density and structure, left forearm; Z17.0 Estrogen receptor positive status [ER+]; Z78.0 Asymptomatic menopausal state; Z87.891 Personal history of nicotine dependence
CPT/HCPCS: 77080; 77081

== ENCOUNTER → 2021-12-07 10:33 | Outpatient (CLI) | payer OTHER, SELFPAY ==
--- NOTE | 2021-12-07 10:34 | DI.MG.S_ITS ---
BILATERAL DIGITAL DIAGNOSTIC MAMMOGRAM 3D/2D: 12/07/2021 CLINICAL: First mammogram post lumpectomy. Comparison is made to exams dated: 05/27/2020 mammogram, 04/03/2020 mammogram, 03/25/2020 mammogram, 02/28/2020 mammogram - [facility], and 05/17/2018 mammogram - [facility]. There are scattered areas of fibroglandular density in both breasts (category b / 25%-50% glandular tissue). There are benign calcifications in the left breast. There also are benign post operative findings in the left breast. There is a mole marker on the left breast. No significant masses, calcifications, or other findings are seen in either breast. There has been no significant interval change. IMPRESSION: BENIGN There is no mammographic evidence of malignancy. A 1 year screening mammogram is recommended. This exam was interpreted at Station ID: [id number]. NOTE: For mammograms, a report in lay terms will be sent to the patient. Approximately 15% of breast malignancies will not be visualized mammographically. In the management of a palpable breast mass, a negative mammogram must not discourage biopsy of a clinically suspicious lesion. Electronically Signed By: Teresa mckeon/beny:12/07/2021 10:52:54 letter sent: Normal Exam ACR BI-RADS Category 2: Benign Finding(s) 3342C
== END ==
PROVIDERS: PCP Registered Nurse Diabetes Educator; Referring Provider Internal Medicine Hematology & Oncology; Visit Provider Internal Medicine Hematology & Oncology
DX: R92.8 Other abnormal and inconclusive findings on diagnostic imaging of breast (principal); C50.412 Malignant neoplasm of upper-outer quadrant of left female breast; Z17.0 Estrogen receptor positive status [ER+]
CPT/HCPCS: 77066; G0279

== ENCOUNTER → 2022-07-22 07:46 | Outpatient (CLI) | payer OTHER, SELFPAY ==
[2022-07-22 08:09] LABS: Add Manual Diff / Slide Review NO; Basophils Absolute Auto 100 /uL (0-100); Basophils Percent Auto 0.8 % (0-2); Eosinophils Absolute Auto 400 /uL (0-450); Eosinophils Percent Auto 3.8 % (2-4); Hemoglobin 13.4 g/dL (12.0-16.0); Lymphocytes Absolute Auto 4000 /uL (1100-4500); Lymphocytes Percent Auto 39.7 % (25-40); Mean Corpuscular HGB Conc 34.3 % (30-36); Mean Corpuscular Volume 87.5 fL (80-100); Monocytes Absolute Auto 700 /uL (0-900); Monocytes Percent Auto 6.9 % (3-14); Neutrophils Absolute Auto 4900 /uL (1500-7000); Neutrophils Percent Auto 48.8 % (50-75); Platelet Count 304 X10^3/uL (150-400); Red Blood Cell Count 4.46 X10^6/uL (4.0-5.2); Red Cell Distribution Width 13.3 % (11.6-14.8)
[2022-07-22 08:24] LABS: Alanine Aminotransferase 28 IU/L (<35); Albumin 4.5 g/dL (3.5-5.0); Albumin Globulin Ratio 1.3 (1.0-2.8); Alkaline Phosphatase 88 U/L (38-126); Aspartate Aminotransferase 21 IU/L (14-36); Bilirubin Total 1.3 mg/dL (0.2-1.3); Blood Urea Nitrogen 15 mg/dL (7-17); Calcium 9.7 mg/dL (8.4-10.2); Carbon Dioxide 28 mmol/L (22-32); Chloride 106 mmol/L (98-107); Estimated Glomerular Filt Rate > 60 mL/min (>60); Globulin 3.6 g/dL (1.7-4.1); Glucose 100 mg/dL (80-110); HEMOLYSIS < 15 (0-50); Potassium 4.2 mmol/L (3.4-5.1); Sodium 142 mmol/L (137-145); Total Protein 8.1 g/dL (6.3-8.2)
[2022-07-22 08:28] LABS: Cholesterol 170 mg/dL (140-199); HDL Cholesterol 49 mg/dL (40-60); LDL Cholesterol Calculated 87 mg/dL (<100); Triglycerides 172 mg/dL (35-150)
[2022-07-22 08:53] LABS: TSH w/ Reflex to FT4 1.06 uIU/mL (0.47-4.68)
== END ==
PROVIDERS: Internal Medicine Hematology & Oncology; PCP Registered Nurse Diabetes Educator; Referring Provider Registered Nurse Diabetes Educator; Visit Provider Registered Nurse Diabetes Educator
DX: E78.5 Hyperlipidemia, unspecified (principal); R73.01 Impaired fasting glucose; C50.919 Malignant neoplasm of unspecified site of unspecified female breast
CPT/HCPCS: 36415; 80053; 80061; 84443; 85025

== ENCOUNTER → 2023-01-20 12:51 | Outpatient (CLI) | payer OTHER, SELFPAY ==
[2023-01-20 13:28] LABS: BUN Creatinine Ratio 22.1 (6-22); Blood Urea Nitrogen 17 mg/dL (7-17); Estimated Glomerular Filt Rate > 60 mL/min (>60)
== END ==
PROVIDERS: PCP Registered Nurse Diabetes Educator; Referring Provider Family Medicine; Visit Provider Family Medicine
DX: I67.1 Cerebral aneurysm, nonruptured (principal)
CPT/HCPCS: 36415; 82565; 84520

== ENCOUNTER → 2023-01-21 12:37 | Outpatient (CLI) | payer OTHER, SELFPAY ==
--- NOTE | 2023-01-21 12:39 | DI.CT.S_ITS ---
PROCEDURE: CT ANGIO HEAD INDICATIONS: worsening headaches, hx of aneurysm TECHNIQUE: Precontrast 4.5 mm thick angled axial sections acquired from the foramen magnum to the vertex. After the administration of intravenous contrast, 1 mm thick sections acquired through the [place] of [place]. Postcontrast 4.5 mm thick sections then re-acquired from the foramen magnum to the vertex. 10 mm thick britunk-jyzjruzzg-gpwybknjnf (MIP) reformats were acquired of the central intracranial vasculature. For radiation dose reduction, the following was used: automated exposure control, adjustment of mA and/or kV according to patient size. COMPARISON: [facility], RG, CT ANGIO HEAD, 10/01/2018, 12:10. [facility], CT, CT ANGIO HEAD, 03/30/2020, 14:32. FINDINGS: Image quality: Mild streak artifact can be seen through the skull base. Anterior circulation: There is again seen a 2-3 mm aneurysm involving the proximal most aspect of the left A2 segment, as on series 9, image 43, which is directed laterally. This aneurysm demonstrates a wide neck. This is similar in size in appearance compared to the 2019 examination. No additional aneurysms are seen. Intracranial internal carotid arteries are normal in size and flow. The flow within the paired anterior cerebral arteries is normal and symmetric. The flow within the middle cerebral arteries is normal and symmetric. The anterior communicating artery is seen. Posterior circulation: Visualized portions of the vertebral arteries demonstrate normal caliber, and join to form a normal appearing basilar artery. Flow within the posterior cerebral arteries is normal and symmetric. No aneurysms are seen. CSF spaces: Ventricles are normal in size and shape. Basal cisterns are patent. No extra-axial fluid collections. Brain: No midline shift. No intracranial bleeds or masses. Jade-white matter interface appears intact. Skull and face: Calvarium and facial bones appear intact, without suspicious lesions. Sinuses: Visualized sinuses and mastoids are clear. IMPRESSION: Stable 2-3 mm aneurysm seen involving the proximal left A2 segment, which is not significantly changed compared to 2019. Dictated by: Kota Clayton M.D. on 01/21/2023 at 13:03 Approved by: Kota Clayton M.D. on 01/21/2023 at 13:07
== END ==
PROVIDERS: PCP Registered Nurse Diabetes Educator; Referring Provider Family Medicine; Visit Provider Family Medicine
DX: I67.1 Cerebral aneurysm, nonruptured (principal)
CPT/HCPCS: 70496; Q9967

== ENCOUNTER → 2023-02-10 17:12 | Outpatient (CLI) | payer OTHER, SELFPAY ==
--- NOTE | 2023-02-10 17:13 | DI.MG.S_ITS ---
BILATERAL DIGITAL SCREENING MAMMOGRAM 3D/2D WITH CAD: 02/10/2023 CLINICAL: Routine screening. Personal history of left breast cancer. Family history of breast cancer. Comparison is made to exams dated: 12/07/2021 mammogram, 05/27/2020 mammogram, 02/28/2020 mammogram - [facility], and 05/17/2018 mammogram - [facility]. There are scattered areas of fibroglandular density in both breasts (category b / 25%-50% glandular tissue). Current study was also evaluated with a Computer Aided Detection (CAD) system. There are benign calcifications in the left breast. There also are benign post operative findings in the left breast. There is a mole marker on the left breast. No significant masses, calcifications, or other findings are seen in either breast. There has been no significant interval change. IMPRESSION: BENIGN There is no mammographic evidence of malignancy. A 1 year screening mammogram is recommended. This exam was interpreted at Station ID: [id number]. NOTE: For mammograms, a report in lay terms will be sent to the patient. Approximately 15% of breast malignancies will not be visualized mammographically. In the management of a palpable breast mass, a negative mammogram must not discourage biopsy of a clinically suspicious lesion. Electronically Signed By: Iain hanson/beny:02/13/2023 07:24:56 letter sent: Normal Exam ACR BI-RADS Category 2: Benign Finding(s) 3342F
== END ==
PROVIDERS: PCP Registered Nurse Diabetes Educator; Referring Provider Internal Medicine Hematology & Oncology; Visit Provider Internal Medicine Hematology & Oncology
DX: Z12.31 Encounter for screening mammogram for malignant neoplasm of breast (principal); C50.919 Malignant neoplasm of unspecified site of unspecified female breast; Z80.3 Family history of malignant neoplasm of breast
CPT/HCPCS: 77063; 77067

== ENCOUNTER → 2024-03-12 08:40 | Outpatient (CLI) | payer OTHER, SELFPAY ==
--- NOTE | 2024-03-12 | DI.CT.S_ITS ---
PROCEDURE: CT ABDOMEN PELVIS W CON INDICATIONS: abdominal pain, history of breast cancer TECHNIQUE: After the administration of intravenous contrast, axial sections acquired from the lung bases to the pubic symphysis. Coronal and sagittal reformats were performed. For radiation dose reduction, the following was used: automated exposure control, adjustment of mA and/or kV according to patient size. COMPARISON: None. FINDINGS: Image quality: Diagnostic. Lower Chest: Surgical clips are noted in left chest wall/breast. Bilateral lung bases are clear. Heart size is mildly enlarged, no pericardial effusion. ABDOMEN: Liver: No solid mass. Chzs-yh-ycsrsyen hepatic steatosis is seen. Gallbladder: Gallbladder is surgically absent. Biliary ducts: No biliary dilation. Pancreas: No ductal dilation. Spleen: Size is within normal limits. Adrenal Glands: No adrenal nodules. Kidneys and Ureters: No hydronephrosis. No solid mass. No complex renal cystic lesion which requires follow up. Stomach and Bowel: Mild fecal stasis in the colon is seen. There is no bowel obstruction or abnormal bowel wall thickening. No mesenteric fat stranding. No abscess collection. Appendix is visualized in right lower quadrant and is normal in size and appearance. Peritoneum: No abnormal intraperitoneal fluid. No free air. Ventral Wall: No significant ventral hernia. Abdominal Nodes: No retroperitoneal or mesenteric adenopathy by size criteria. Vessels: Aorta and inferior vena cava are normal in size. PELVIS: Pelvic Organs: Lobulated uterine contour suggestive of the uterine fibroids. Surgical clips are seen in bilateral adnexa. Bladder: No bladder wall thickening, accounting for underdistention. Pelvic Nodes: No enlarged lymph nodes. Miscellaneous: No inguinal hernias are seen. Bones: No aggressive osseous abnormality. IMPRESSION: 1. No acute inflammatory process is seen in abdomen or pelvis. No bowel obstruction or abnormal bowel wall thickening. Normal appendix. No free fluid or free air. 2. No obstructing renal stones or hydronephrosis. 3. Prior cholecystectomy. Ssev-xy-dbzdgvjr hepatic steatosis without hepatic lesion. Dictated by: Hermes Rivera M.D. on 03/12/2024 at 10:01 Approved by: Hermes Rivera M.D. on 03/12/2024 at 10:22
[2024-03-12 09:00] LABS: Add Manual Diff / Slide Review NO; Basophils Absolute Auto 100 /uL (0-100); Basophils Percent Auto 0.9 % (0-2); Eosinophils Absolute Auto 400 /uL (0-450); Hematocrit 40.9 % (36-46); Lymphocytes Absolute Auto 2900 /uL (1100-4500); Lymphocytes Percent Auto 33.1 % (25-40); Mean Corpuscular HGB Conc 34.2 % (30-36); Mean Corpuscular Volume 87.5 fL (80-100); Monocytes Absolute Auto 700 /uL (0-900); Monocytes Percent Auto 7.8 % (3-14); Neutrophils Absolute Auto 4700 /uL (1500-7000); Neutrophils Percent Auto 54.2 % (50-75); Platelet Count 347 X10^3/uL (150-400); Red Blood Cell Count 4.67 X10^6/uL (4.0-5.2); Red Cell Distribution Width 13.1 % (11.6-14.8); White Blood Cell Count 8.7 X10^3/uL (4.5-11.0)
[2024-03-12 09:27] LABS: Alanine Aminotransferase 38 IU/L (<35); Albumin 4.7 g/dL (3.5-5.0); Albumin Globulin Ratio 1.2 (1.0-2.8); Alkaline Phosphatase 111 U/L (38-126); Aspartate Aminotransferase 31 IU/L (14-36); BUN Creatinine Ratio 18.1 (6-22); Bilirubin Total 1.7 mg/dL (0.2-1.3); Blood Urea Nitrogen 15 mg/dL (7-17); Calcium 9.7 mg/dL (8.4-10.2); Carbon Dioxide 27 mmol/L (22-32); Chloride 104 mmol/L (98-107); Estimated Glomerular Filt Rate > 60 mL/min (>60); Globulin 3.8 g/dL (1.7-4.1); Glucose 105 mg/dL (80-110); HEMOLYSIS < 15 (0-50); Potassium 4.3 mmol/L (3.4-5.1); Sodium 141 mmol/L (137-145); Total Protein 8.5 g/dL (6.3-8.2)
[2024-03-12 09:30] LABS: Erythrocyte Sedimentation Rate 20 MM/HR (0-20)
[2024-03-12 09:32] LABS: C-Reactive Protein Quant < 0.5 mg/dL (<1.0); Cholesterol 187 mg/dL (140-199); HDL Cholesterol 48 mg/dL (40-60); LDL Cholesterol Calculated 79 mg/dL (<100); Triglycerides 299 mg/dL (35-150)
[2024-03-12 09:59] LABS: TSH w/ Reflex to FT4 1.25 uIU/mL (0.47-4.68)
[2024-03-12 11:02] LABS: Appearance Urine UA CLEAR; Bilirubin Urine UA NEGATIVE (NEGATIVE); Color Urine UA YELLOW; Glucose Urine UA NEGATIVE (Negative); Ketones Urine UA NEGATIVE (NEGATIVE); Leukocyte Esterase Urine UA 1+ (NEGATIVE); Nitrite Urine UA NEGATIVE (Negative); Occult Blood Urine UA TRACE-INTACT (Negative); Protein Urine UA NEGATIVE (Negative); Urobilinogen Urine UA 0.2 E.U./dL (0.2)
[2024-03-12 11:25] LABS: Bacteria Urine None Seen; Culture Indicated Urine Cult Not Indicated; RBC Urine 0-1/HPF (0-5/HPF); Squamous Epithelial Cell Urine None Seen (0-5/HPF); Urine Volume 10mL (spun); WBC Urine 1-5/HPF (0-5/HPF); pH Urine UA 5.5 (4.5-8.0)
[2024-03-18 11:56] LABS: Lipase 118 U/L (23-300)
== END ==
PROVIDERS: PCP Registered Nurse Diabetes Educator; Referring Provider Registered Nurse Diabetes Educator; Visit Provider Registered Nurse Diabetes Educator
DX: K76.0 Fatty (change of) liver, not elsewhere classified (principal); R10.9 Unspecified abdominal pain; I51.7 Cardiomegaly; Z90.49 Acquired absence of other specified parts of digestive tract
CPT/HCPCS: 36415; 74177; 80053; 80061; 81001; 84443; 85025; 85651; 86140; Q9967

== ENCOUNTER → 2024-03-27 13:12 | Outpatient (CLI) | payer OTHER, SELFPAY ==
--- NOTE | 2024-03-27 13:13 | DI.US.S_ITS ---
PROCEDURE: US PELVIC COMPLETE INDICATIONS: FIBROIDS ON CT TECHNIQUE: Real-time scanning was performed of the pelvic organs, with image documentation. Additional endovaginal scanning was necessary due to incomplete visualization of the adnexal and endometrial structures by transabdominal scanning. COMPARISON: [facility], CT, CT ABDOMEN PELVIS W CON, 03/12/2024, 9:44. FINDINGS: Uterus: Uterus is retroverted and normal in size at 5.3 x 4.0 x 2.4 cm. The myometrium is heterogeneous. The endometrium measures 3 mm combined thickness. There is an echogenic focus within the central endometrium measuring 6 x 6 x 2 millimeters. At least 4 intramural and subserosal uterine fibroids are seen. Largest measures 1.5 x 1.7 x 1.7 centimeter the left midline fundus. Echogenic foci are noted within the junctional zone. Ovaries: Ovaries not visualized. Other: No pathologic free abdominal or pelvic fluid. IMPRESSION: At least 4 intramural and subserosal uterine fibroids, largest measuring 1.5 x 1.7 x 1.7 centimeter at the fundus. Endometrial filling defect measuring 6 x 6 x 2 millimeters. This could represent a tiny polyp. Echogenic foci within junctional zone, which may indicate adenomyosis. We strive to produce accurate, complete, and clear reports of imaging services. To assist us in improving patient care, this report was composed using standard report templates and voice recognition software. Therefore, it may contain abnormal punctuation, insertions and/or omissions. Occasional wrong-word or sound-alike substitutions may occur. Though we review the report and make efforts to correct it, we do recommend that the report be read carefully in proper context to recognize any text inaccuracies. Dictated by: Adriano Dooley M.D. on 03/28/2024 at 14:33 Approved by: Adriano Dooley M.D. on 03/28/2024 at 14:37
== END ==
PROVIDERS: PCP Registered Nurse Diabetes Educator; Referring Provider Registered Nurse Diabetes Educator; Visit Provider Registered Nurse Diabetes Educator
DX: D25.1 Intramural leiomyoma of uterus (principal); D25.2 Subserosal leiomyoma of uterus; R93.89 Abnormal findings on diagnostic imaging of other specified body structures
CPT/HCPCS: 76830; 76856

== ENCOUNTER → 2024-04-19 08:46 | Outpatient (CLI) | payer OTHER, SELFPAY ==
[2024-04-19 10:12] LABS: Alanine Aminotransferase 37 IU/L (<35); Albumin 4.7 g/dL (3.5-5.0); Albumin Globulin Ratio 1.4 (1.0-2.8); Alkaline Phosphatase 108 U/L (38-126); Aspartate Aminotransferase 26 IU/L (14-36); Bilirubin Total 1.6 mg/dL (0.2-1.3); Bilirubin Unconjugated 1.3 mg/dL (0.0-1.1); Cholesterol 171 mg/dL (140-199); Globulin 3.3 g/dL (1.7-4.1); Glucose 108 mg/dL (80-110); HDL Cholesterol 43 mg/dL (40-60); HEMOLYSIS < 15 (0-50); LDL Cholesterol Calculated 78 mg/dL (<100); Triglycerides 248 mg/dL (35-150)
== END ==
PROVIDERS: PCP Registered Nurse Diabetes Educator; Referring Provider Registered Nurse Diabetes Educator; Visit Provider Registered Nurse Diabetes Educator
DX: E78.5 Hyperlipidemia, unspecified (principal); R73.01 Impaired fasting glucose; R03.0 Elevated blood-pressure reading, without diagnosis of hypertension
CPT/HCPCS: 36415; 80061; 80076; 82947

== ENCOUNTER 2024-05-06 06:06 | Day surgery (SDC) | payer OTHER, SELFPAY ==
[2024-04-29 10:24] VITALS: BMI 27.4
[2024-05-06 06:53] VITALS: BMI 27.4
[2024-05-06 07:20] VITALS: BP 158/86; PULSE 69; RESP 16; TEMP 37; O2SAT 97
[2024-05-06] MEDS: LACTATED RINGERS 1,000 ML 42 ML IV (07:22)
[2024-05-06] MEDS: ACETAMINOPHEN IV 1,000 MG/100 ML VIAL 400 MG IV (07:22)
--- NOTE | 2024-05-06 07:27 | PM.PREOP ---
Pre-operative Note Interval Note History & Physical reviewed/Exam performed by Physician: Yes Changes to H&P: No ASA Class (for procedural sedation): II
[2024-05-06 07:28] LABS: Influenza A - CEPHEID Flu A NEGATIVE (NEGATIVE); Influenza B - CEPHEID Flu B NEGATIVE (NEGATIVE); Respiratory Syncytial Virus Negative (Negative)
[2024-05-06 07:36] LABS: COVID-19 CEPHEID 4-PLEX PCR POSITIVE (Negative)
--- NOTE | 2024-05-06 08:02 | SUR.PREOP ---
Pt tested positive for COVID. Procedure cancelled.
== END 2024-05-06 06:10 | disposition home or self-care (01) ==
PROVIDERS: PCP Registered Nurse Diabetes Educator; Referring Provider Obstetrics & Gynecology; Visit Provider Obstetrics & Gynecology
DX: Z53.09 Procedure and treatment not carried out because of other contraindication (principal); U07.1 COVID-19
CPT/HCPCS: 0241U; 82962; J0131

== ENCOUNTER 2024-05-13 11:56 | Day surgery (SDC) | payer OTHER, SELFPAY ==
[2024-05-07 10:20] VITALS: BMI 27.4
[2024-05-13] VITALS (7 sets, daily range): BP systolic 117–161; BP diastolic 72–90; PULSE 62–87; RESP 10–16; TEMP 36.3–36.7; O2SAT 98–100; BMI 27.4
--- NOTE | 2024-05-13 | PATH_ITS ---
[facility] Accession Number: [id number] No. of containers..01 Tissue . 01 Material submitted: . endometrium - ENDOMETRIAL CURETTINGS . 01 Diagnosis: ENDOMETRIUM, CURETTINGS: Scant biopsy composed of rare strips of benign, inactive/atrophic endometrial epithelium; overall suboptimal to evaluate for endometrial pathologies. Predominantly strips of benign, atrophic ectocervical and scant endocervical epithelium. MRV 05/14/2024 1529 Local . 01 Electronically signed: . Judi Fitch MD, Pathologist NPI- [id number] . 01 Gross description: . ENDOMETRIAL CURETTINGS: Received in formalin are minute fragments of mucoid and hemorrhagic material measuring 0.4 x 0.4 x 0.1 cm in aggregate. Submitted in toto in 1 cassette. /STEVE 05/13/2024 2322 Local . 01 Pathologist provided ICD-10: R10.2, R93.89 . 01 CPT . 923336 Specimen Comment: A courtesy copy of this report has been sent to [facility] Pathology Performed at: [address] [address], [place], [place] [id number] MD Brady Bear MD Phone: [phone]
--- NOTE | 2024-05-13 12:17 | PM.PREOP ---
Pre-operative Note Interval Note History & Physical reviewed/Exam performed by Physician: Yes Changes to H&P: No ASA Class (for procedural sedation): II
[2024-05-13] MEDS: ACETAMINOPHEN 325 MG TABLET 975 MG PO (12:26)
[2024-05-13] MEDS: FAMOTIDINE 20 MG/2 ML VIAL IV (12:26)
[2024-05-13] MEDS: LACTATED RINGERS 1,000 ML 42 ML IV (12:26)
--- NOTE | 2024-05-13 12:43 | SUR.OPER ---
Lithotomy on padded OR bed, head on pillow, arms secured on padded arm boards at <90 degrees abduction. Legs secured in padded yellow fins stirrups.
--- NOTE | 2024-05-13 13:17 | PM.OP.1 ---
Operative Date/Time/Diagnoses Date of procedure: 05/13/24 Time of procedure: 13:17 Pre-op diagnosis: abnormal pelvic US, AUB Post-op diagnosis: same Procedure & Clinicians Procedure: hysteroscopy, dilation and curettage Same procedure as scheduled: Yes Indications: abnormal pelvic US, AUB Surgeon: Kristie Grayson Click Yes if Unassisted: Yes Anesthesia Type: General Operative Notes Findings: normal external female genitalia cervix and vagina visually wnl intrauterine cavity atrophic in appearance without polyp or abnormality, possible small posterior fibroid non-submucosal bilateral ostia visualized Closure Type: not applicable Specimen(s): other (endometrial currettings ) Estimated Blood Loss (mL): 0 Procedure in detail: Pt was taken to the operating room, transferred to OR table and anesthesia was induced with placement of LMA.? Pt had her legs placed in Mateus stirrups and an exam under anesthesia was performed. The patient was prepped and draped in a sterile fashion.? A time out was performed. ?The bladder was emptied via straight catheter in sterile fashion.? A sterile speculum was inserted into the vagina.? The cervix was visualized and grasped anteriorly using a single tooth tenaculum.? The uterus sounded to 6cm and the cervical os was serially dilated using Restrepo dilators up to 17f to allow for passage of the hysteroscope.? The 5mm 0 degree hysteroscope was then inserted into the uterus with findings as noted.? The hysteroscope was removed and the uterus was sharply curetted until a gritty texture was noted throughout.? The tenaculum was removed and hemostasis was noted at insertion sites.? The speculum was removed and hemostasis was again noted to be excellent.? The patient then had her legs taken out of stirrups.? The patient tolerated the procedure well and without difficulty.? The patient was awakened from anesthesia and taken to PACU in stable condition. Complications: none Post-operative Condition: stable
--- NOTE | 2024-05-13 13:51 | SUR.PHASEII ---
Spouse left bedside to get patient food. Call light within reach.
--- NOTE | 2024-05-13 13:56 | SUR.PHASEII ---
Patient declined Oxycodone.
== END 2024-05-13 14:20 | disposition home or self-care (01) ==
PROVIDERS: PCP Registered Nurse Diabetes Educator; Referring Provider Obstetrics & Gynecology; Visit Provider Obstetrics & Gynecology
PROC: 0UDB8ZZ Extraction of Endometrium, Via Natural or Artificial Opening Endoscopic (ICD-10-PCS; CPT 58558; principal; 2024-05-13 13:45)
DX: R93.89 Abnormal findings on diagnostic imaging of other specified body structures (principal); N93.9 Abnormal uterine and vaginal bleeding, unspecified; N85.8 Other specified noninflammatory disorders of uterus
CPT/HCPCS: 58558; 82962; J2704; J3010

== ENCOUNTER 2024-06-20 11:56 | Day surgery (SDC) | payer OTHER, SELFPAY ==
--- NOTE | 2024-06-20 | PATH_ITS ---
[facility] Accession Number: [id number] No. of containers..01 Tissue . 01 Material submitted: . stomach - ANTRUM . 01 Diagnosis: ANTRUM: Gastric mucosa with no diagnostic alterations. No Helicobacter organisms identified on H/E stain. No intestinal metaplasia, dysplasia, or malignancy identified. [facility] 06/25/20241705 Local . 01 Electronically signed: . Brady Bear MD, Pathologist NPI- [id number] . 01 Gross description: . Received in formalin with two patient identifiers and antrum, are three bates soft tissue fragments 0.4 to 0.5 cm in greatest dimension. Submitted in cassette A1. ([id number]) /MOLLY 06/25/20241705 Local . 01 Pathologist provided ICD-10: R10.9 . 01 CPT . 493579 Specimen Comment: A courtesy copy of this report has been sent to [phone] Performed at: [address] [address], [place], [place] [id number] MD Brady Bear MD Phone: [phone]
[2024-06-20 12:38] VITALS: BP 144/84; PULSE 74; RESP 16; TEMP 36.5; O2SAT 100
[2024-06-20] MEDS: LACTATED RINGERS 1,000 ML 42 ML IV (12:59)
--- NOTE | 2024-06-20 13:05 | PM.HP.IH.1 ---
History of Present Illness History of Present Illness Date Patient Seen: 06/20/24 Time Patient Seen: 13:05 Chief complaint: EGD & Colonoscopy w/poss bx's Narrative: Angela is a 63 year old woman with right lower quadrant abdominal pain. See the office note from April for details. [facility] Medical History (Updated 05/07/24 @ 10:23 by Sharon Dunlap RN) COVID-19 (05/06/24) GERD (gastroesophageal reflux disease) Diverticulosis RLQ abdominal pain Abnormal pelvic ultrasound Family history of colon cancer Hepatic steatosis Anterior communicating artery aneurysm Carpal tunnel syndrome, left Intracranial aneurysm (~2020) Elevated cholesterol Breast mass, left Impaired fasting blood sugar Cerebral aneurysm Dyslipidemia Heel pain Vision disorder Headache (~2016) Diverticular disease (~2013) Surgical History (Updated 05/06/24 @ 06:51 by Sindhu Canseco RN) History of cataract extraction History of esophagogastroduodenoscopy (EGD) Hx of colonoscopy History of carpal tunnel release Hx of fusion of cervical spine (~2012) History of surgery (06/24/20) History of lumpectomy of left breast (05/2020) Hx of cholecystectomy (2009) Anesthesia History of bladder surgery (~2009) History of tubal ligation (~2009) Family History Father History of heart disease Mother History of heart disease Breast cancer Hypertension Unknown Colon cancer Social History marital status: household members: spouse Smoking Status: Never smoker alcohol intake: current substance use type: does not use Meds Home Medications and Allergies Home Medications Medication Instructions Recorded Confirmed Type anastrozole 1 mg tablet 1 mg PO DAILY breast cancer #90 11/02/21 06/20/24 Rx tabs calcium carbonate 500 mg PO BID 02/03/22 06/20/24 History cholecalciferol (vitamin D3) 50 50 mcg PO DAILY 02/03/22 06/20/24 History mcg (2,000 unit) capsule (Vitamin D3) lidocaine-prilocaine 2.5 %-2.5 % topical 06/12/23 05/31/24 History topical cream atorvastatin 20 mg tablet 20 mg PO DAILY #90 tabs 03/27/24 06/20/24 Rx triamcinolone acetonide 0.1 % 1 applic topical BID 2 weeks #30 03/27/24 05/31/24 Rx topical cream grams sodium,potassium,mag sulfates 17.5 See Rx Instructions PO .COMPLEX 04/29/24 05/31/24 Rx gram-3.13 gram-1.6 gram oral soln #354 mL (Suprep Bowel Prep Kit) naproxen 500 mg tablet 500 mg PO BID PRN pain #7 tabs 05/14/24 06/20/24 Rx Allergies Allergy/AdvReac Type Severity Reaction Status Date / Time aspirin Allergy Unknown rash, Verified 06/20/24 12:34 hives Exam Vital Signs (past 8 hours): - 06/20/24 12:38 Temperature 97.7 F Pulse Rate 74 Respiratory Rate 16 Blood Pressure 144/84 H Pulse Oximetry 100 Oxygen Delivery Method Room Air Oxygen Delivery Method Room Air Const General: No acute distress Assessment & Plan Assessment and plan (1) RLQ abdominal pain: Status: Acute Plan EGD and colonoscopy Time-Based Coding :: [TOTAL MINUTES] spent with patient and on the chart (including review of chart, obtaining history, exam, reviewing outside data, placing orders, documenting exam and treatment plan, and counseling patient) on [DATE]. [employer] Document charge(s): No
--- NOTE | 2024-06-20 14:19 | P.OP.EGD&C_ITS ---
Operative Date/Time/Diagnoses Date of procedure: 06/20/24 Time of procedure: 14:19 Pre-op diagnosis: Abdominal pain Post-op diagnosis: same Procedure & Clinicians Study performed: EGD and colonoscopy Same procedure as scheduled: Yes Surgeon: Donald Peres Procedure Notes Procedure in detail: Surgeon: Donald Peres MD Anesthesia: Buzz Pulido MD Procedure in detail: A timeout was performed. A bite blocked was placed and monitors were attached to the patient. The patient was positioned in the left lateral decubitus position. Sedation was administered. Once the patient was sedated the endoscope was inserted through the bite block and passed through the esophagus and stomach and into the duodenum. No abnormalities were seen. We then withdrew the scope into the stomach. There was antritis and random biopsies were taken from the antrum with cold forceps. The endoscope was r etroflexed and no hiatal hernia was seen. The endoscope was straightned and withdrawn into the esophagus. No abnormalities were seen. EGD findings: Antritis Next we repositioned the patient for a colonoscopy. A digital rectal exam was performed and was normal. The colonoscope was inserted and advanced to the cecum. The appendiceal orifice was identified and photographed. The scope was slowly withdrawn over greater than 6 minutes. The mucosa was thoroughly examined. A few right-sided diverticula were noted. No polyps or other lesions were noted. The scope was retroflexed in the rectum and no other abnormalities were seen. Colonoscopy findings: A few right-sided diverticula, otherwise normal colon Total procedural EBL: 5 mL Scope withdrawal time: 7 minutes Sedation minutes: 14 minutes Post-procedure Disposition: PACU
[2024-06-20 14:22] VITALS: BP 119/80; PULSE 88; RESP 13; TEMP 36.5; O2SAT 98
[2024-06-20 14:31] VITALS: BP 124/86; PULSE 86; RESP 13; TEMP 36.5; O2SAT 98
== END 2024-06-20 14:55 | disposition home or self-care (01) ==
PROVIDERS: PCP Registered Nurse Diabetes Educator; Referring Provider Surgery; Visit Provider Surgery
PROC: 0DJ08ZZ Inspection of Upper Intestinal Tract, Via Natural or Artificial Opening Endoscopic (ICD-10-PCS; CPT 43239; principal; 2024-06-20 14:45)
PROC: 0DJD8ZZ Inspection of Lower Intestinal Tract, Via Natural or Artificial Opening Endoscopic (ICD-10-PCS; CPT 45378; 2024-06-20 14:45)
DX: R10.31 Right lower quadrant pain (principal); K29.50 Unspecified chronic gastritis without bleeding; K57.30 Diverticulosis of large intestine without perforation or abscess without bleeding
CPT/HCPCS: 43239; 45378; J2405; J2704; J3010

== ENCOUNTER → 2024-12-09 10:40 | Outpatient (CLI) | payer MEDICARE, OTHER, SELFPAY ==
--- NOTE | 2024-12-09 10:43 | DI.RAD.S_ITS ---
PROCEDURE: XR SHOULDER RT MIN 2V INDICATIONS: eval R shoulder pain, LBP TECHNIQUE: 3 views of the shoulder were acquired. COMPARISON: None. FINDINGS: Bones: No fractures or dislocations. Erqx-fy-vcipqdps acromioclavicular joint osteoarthritic changes are seen. Mild glenohumeral joint osteoarthritic changes also noted. No suspicious bony lesions. Visualized ribs appear intact. Soft tissues: No suspicious soft tissue calcifications. IMPRESSION: Kzcq-nv-pduycfot right shoulder joint osteoarthritis. No fracture or dislocation. No gross soft tissue abnormalities. Dictated by: Hermes Rivera M.D. on 12/09/2024 at 13:49 Approved by: Hermes Rivera M.D. on 12/09/2024 at 13:50
--- NOTE | 2024-12-09 10:43 | DI.RAD.S_ITS ---
PROCEDURE: XR LUMBAR SPINE 2-3V INDICATIONS: eval R shoulder pain, LBP TECHNIQUE: 3 views of the lumbar spine were acquired. COMPARISON: None. FINDINGS: Bones: 5 hho-lop-cjdhmoj vertebrae are present. There is normal bony alignment. Loss of disc height, degenerative endplate changes and mild bilateral facet arthrosis throughout lumbar spine is seen. No vertebral body compression fractures. No suspicious bony lesions. Soft tissues: Overlying bowel gas pattern is normal. No suspicious soft tissue calcifications. IMPRESSION: Mild spondylitic changes throughout lumbar spine. No acute vertebral body compression fracture or significant spondylolisthesis. Dictated by: Hermes Rivera M.D. on 12/09/2024 at 13:47 Approved by: Hermes Rivera M.D. on 12/09/2024 at 13:49
== END ==
LOC: RAD 10:42
PROVIDERS: PCP Registered Nurse Diabetes Educator; Referring Provider Registered Nurse Diabetes Educator; Visit Provider Registered Nurse Diabetes Educator
DX: M47.816 Spondylosis without myelopathy or radiculopathy, lumbar region (principal); M19.011 Primary osteoarthritis, right shoulder; M25.511 Pain in right shoulder; M54.59 Other low back pain
CPT/HCPCS: 72100; 73030